=== PATIENT | female | born 1990 | race Caucasian/White ===

== ENCOUNTER 2019-02-12 17:24 | Observation (INO) | payer MEDICAID, SELFPAY ==
[2019-02-12 17:26] VITALS: BP 110/84; PULSE 92; RESP 16; TEMP 37; O2SAT 99; BMI 21.9
--- NOTE | 2019-02-12 18:51 | ED.DCSUM_ITS ---
- ER Visit Summary Date of Service: 02/12/19 Chief Complaint: [Accidental drug overdose] History of Present Illness: The patient is a 28 F [presents to the emergency department after an accidental drug overdose of heroin. Patient apparently was found unresponsive and blue and 911 was called. Patient received Narcan and initially intranasally and they did not have much of a response with that therefore they started an IV and gave her Narcan IV and patient then woke up. Patient has had multiple other overdoses. Patient last went through detox inpatient about a month ago. Patient's been using heroin for over 13 years. Patient has no physical complaints currently. She is currently being treated f or a staph infection on her foot and is on Bactrim and Keflex. Patient denies feeling suicidal or homicidal.] Physical Examination: [HEENT-PERRLA, EOMI. Cranial nerves II through XII grossly intact. TMs clear. Mucous membranes moist. No adenopathy. Cardiovascular-regular rate and rhythm without murmur or ectopy Lungs-clear to auscultation, chest wall stable without crepitus or subcu emphysema Abdomen-normoactive bowel sounds, soft, nontender, no rebound or rigidity, no peritoneal signs. Extremities-intact ?4, normal range of motion, normal pulses. Patient has mu ltiple track waller to her feet and lower extremities. Patient has track waller to upper extremities. No evidence of cellulitis or abscesses noted. Patient does have a healing abscess on her left heel.] Test Results: [None indicated] Emergency Department Course and Treatment: [Was observed for 2 hours in the department and she had no further complications. Patient is requesting detox.] Treatment Plan: Admit Disposition: [Admit Impression: [Accidental heroin overdose Requesting detox from heroin] This note was generated with [employer]com[employer] software. It may contain incorrect words, spelling, and punctuation that were not noted in review of the chart prior to signing ED Disposition - Plan for ED Patient: Referrals: Care Physician,No Primary [Primary Care Provider] -
--- NOTE | 2019-02-12 19:00 | HP.PCM_ITS ---
Problem List (1) Opiate withdrawal Status: Acute (2) Accidental overdose of heroin Status: Acute Qualifiers: Encounter type: initial encounter Qualified Code(s): T40.1X1A - Poisoning by heroin, accidental (unintentional), initial encounter (3) Tobacco use Status: Chronic (4) Hepatitis C Status: Chronic Qualifiers: Viral hepatitis chronicity: unspecified Hepatic coma status: without hepatic coma Qualified Code(s): B19.20 - Unspecified viral hepatitis C without hepatic coma History of Present Illness Date of Admission: 02/12/19 Chief Complaint: Acute opiate overdose, given narcan and now requesting withdrawal treatment The patient is a 28 y/o F w/ PMHx: Tobacco Use, Polysubstance abuse (Heroin IV and snorted, Cannabis), Hepatitis C who presents to the [facility] ED on 02/12/19 with recent heroin IV administration with accidental OD with EMS call, noted to have been found unresponsive and blue with administration narcan as well as per ED physician w/ noted opiate withdrawal following these administrations with now complaints of abdominal cramping, generalized body aches and pains, rhinorrhea, piloerection, fatigue, restless leg, sweating, yawning. Patient interested in attaining clean status although police were in ED and noted she had warrants for her if she did not get admitted thus possibly her choice to avoid incarcerations. She notes having overdosed several times. She has tried rehab several times. In the ED work-up including CBC, CMP, UDS, testing and EtOH level pending upon requested evaluation of patient. Past Medical History Past Medical History (Chronic Problems): Chronic Problems Tobacco use (Chronic) Hepatitis C (Chronic) Allergies No Known Allergies Allergy (Verified 02/12/19 17:33) Home Medications: Ambulatory Orders Medication Instructions Recorded NK 02/12/19 Surgical History: tonsillectomy Psychiatric History: No pertinent psych hx DISPUTE RESOLUTION ANALYST History: No pertinent DISPUTE RESOLUTION ANALYST history Lives: - - Lives with several roommates, some of whom are polysubstance abusers as well. Smoking Status: Current every day smoker - 1 to 1.5 pack/day cigarette tobacco usage. Tobacco Use: Cigarettes Alcohol: Rare Drugs: Heroin, Marijuana - *Family History Maternal History Items: - - Patient denies any market paternal or maternal family history including heart disease, diabetes, cancer, substance abuse. Paternal History Items: - - Patient denies any market paternal or maternal family history including heart disease, diabetes, cancer, substance abuse. Review of Systems Constitutional: Reports: Malaise, Weakness, Fatigue. Denies: Chills, Fever, Weight Change HEENT: Denies: Head Aches, Sinus Congestion, Sinus Drainage Cardiovascular: Denies: Chest Pain, Palpitations Respiratory: Denies: Cough, Shortness of breath at rest, Sputum production Gastrointestinal: Reports: Abdominal Pain, Nausea. Denies: Vomiting Genitourinary: Denies: Dysuria Musculoskeletal: Reports: Joint Pain, Muscle pain. Denies: Joint Tenderness Skin: Reports: Skin Changes. Denies: Rash, Wounds Neurological: Denies: Numbness, Tingling, Focal weakness Psychiatric: Denies: Anxiety, Depression, Homicidal Ideations, Suicidal Shakila ations Hematologic/ Lymphatic: Denies: Easy Bruising, Easy Bleeding VTE Information - Inpt Only VTE Present on Admission: No VTE Mechan Device Prophylaxis: None VTE Pharm Prophylaxis ordered?: No Reason prophylaxis not ordered:: Treatment Not Indicated Patient Problems: Active and Suspected Problems Opiate withdrawal (Acute) Accidental overdose of heroin (Acute) Subjective: Seated upright in the ED bed, fatigued appearance, notes very uncomfortable, appears in withdrawal. Objective: Physical Examination: General: awake, alert, oriented x 3 and cooperative, seated upright in the ED bed, uncomfortable appearing. Skin: normal color, turgor, no icterus, cyanosis, various track waller present. HEENT: AT/NC, EOMI, PERRLA, dry MM, rhinorrhea evident, no carotid bruits or JVD noted. Lungs: CTA bilaterally, moderate effort, moderate decrease BL bases, no rales, ronchi or wheezing. Heart: Mildly tachycardic with regular rhythm; no gallop, rub audible. Abdomen: soft, mild generalized discomfort with palpation, ND, mildly hyperactive BS, no HSM. Extremities: no cyanosis, clubbing, or edema. Neurological: patient awake, alert, oriented x 3; cognitive function intact; pupils equally reactive to light and accomodation; cranial nerves II-XII grossly normal, moving all 4 extremities, no focal deficits, strength moderately global decrease secondary to acute presentation. Psychiatric: affect appears fatigued, uncomfortable, no acute evidence of depressive or anxiety feelings. - Physical Exam Vital Signs Temp Pulse Resp BP Pulse Ox 98.6 F 92 16 110/84 H 99 02/12/19 17:26 02/12/19 17:26 02/12/19 17:26 02/12/19 17:26 02/12/19 17:26 Oxygen Delivery Method Room Air Weight: 123 lb 14.397 oz Body Mass Index (BMI) 21.9 Assessment/Plan All Active Problems Opiate withdrawal (Acute) Accidental overdose of heroin (Acute) The patient is a 28 y/o F w/ PMHx: Tobacco Use, Polysubstance abuse, Hepatitis C who presents to the [facility] ED on 02/12/19 with recent heroin IV administration with accidental OD with EMS call, noted to have been found unresponsive and blue with administration narcan as well as per ED physician w/ noted opiate withdrawal. (1) Acute Opiate Withdrawal: Will admit to [facility], obtain routine labs including CBC, CMP, urine for drug screen, urinalysis, serum lipase, routine EKG and will initiate and continue on [facility] service protocol with tapering course of Subutex, as needed Seroquel, Librium, Sinemet, Catapres, Bentyl, Vistaril, IV fluids, IV antiemetics, Tylenol as needed for pain. Once patient clinically improved and completion of taper nearing will plan [facility] assistance for transition to next level of rehabilitation care. (2) Polysubstance Abuse, IVDA Hx, History of Hepatitis C: Patient currently not candidate for hep C treatment currently as needs to be clean, sober x 6 months, documented attendance NA or AA meetings, counseling and ongoing negative drug screens. HIV, hepatitis panel to assess for co-infection pending. Encouraged PCP establishment and follow-up. (3) Tobacco Abuse: Encouraged cessation, inpatient consultation per RT, NR if desired. (4) DVT prophylaxis: Low risk, ambulation. Code Visit Inpatient E&M: 44990 Init Hosp L3
[2019-02-12 19:20] VITALS: BP 96/65; PULSE 82; RESP 20; O2SAT 97
[2019-02-12 19:31] LABS: Absolute Lymphocyte Count 1.22 X10^3/uL (0.83-4.51); Absolute Neutrophil Count 4.8 X10^3/uL (2.0-7.7); Basophil# 0.03 X10^3/uL; Basophil% 0.5 % (0-1); Eosinophil# 0.01 X10^3/uL; Eosinophils% 0.2 % (0-5); Hematocrit 38.2 % (37-47); Hemoglobin 12.1 g/dL (12.0-15.0); Lymphocyte # 1.22 X10^3/ul (4.0); Lymphocyte % 18.8 % (19-41); Mean Corp Hgb Conc 31.7 g/dL (32-36); Mean Corpuscular Hgb 26.9 pg (27.0-32.0); Mean Corpuscular Volume 84.9 fL (81-99); Mean Platelet Vol. 10.6 fl (6.2-12.0); Monocyte% 6.2 % (0-10); NRBC Flagged by Analyzer 0 % (0-5); Neutrophil # 4.81 X10^3/uL (2.7-7.7); Neutrophil % 73.8 % (47-70); POSITIVE MORPHOLOGY YES; Platelet Count 225 K/mm3 (150-450); RBC Distribution Width SD 45.4 fl (35.1-43.9); White Blood Count 6.5 K/mm3 (4.4-11.0)
[2019-02-12 19:41] LABS: ALB/GLOB Ratio 0.8 RATIO (0.9-2.4); AST(SGOT) 66 U/L (15-37); Alanine Aminotransfer ALT/SGPT 78 U/L (13-56); Albumin, Serum 2.9 g/dL (3.2-5.0); Alkaline Phosphatase 78 U/L (45-117); Anion Gap 4 (5-15); BUN 14 mg/dL (7-18); BUN/Creat Ratio 19.5 RATIO (10-20); Calcium,Total 8.2 mg/dL (8.5-10.1); Chloride 105 mmol/L (98-107); Creatinine, Serum 0.72 mg/dL (0.55-1.02); EST Glomerular Filtration Rate 103 mL/min (>60); Est Glom Filt Rate - Afr Amer 125 mL/min (>60); Estimated Creatinine Clearance 97.09 ml/min; Globulin 3.6 g/dL (2.2-4.2); Glucose 102 mg/dL (74-106); Potassium 3.9 mmol/L (3.5-5.1); Protein, Total 6.5 g/dL (6.4-8.2); Sodium Level 138 mmol/L (136-145)
[2019-02-12 19:50] VITALS: BMI 20.3; BMI 20.4
[2019-02-12 20:02] VITALS: BP 93/64; PULSE 88; RESP 19; TEMP 37.2; O2SAT 96
[2019-02-12 20:07] LABS: Differential Indicated SCAN CRITERIA MET
[2019-02-12 20:09] LABS: Platelet Estimate ADEQUATE (ADEQ)
[2019-02-12 20:10] LABS: Platelet Morphology LARGE; Red Cell Morphology NORM C+C NORMAL (NORM C&C)
[2019-02-12 20:37] LABS: Internal QC Validated? YES +Cl - CLEAR BKGD; Pregnancy, Serum, hCG Quali. NEGATIVE Negative
[2019-02-12 21:22] LABS: HIV - WCH Non-Reactive (Nonreactive)
[2019-02-12 21:37] LABS: Amphetamine Urine VISTA NEGATIVE (<1000 ng/mL); Barbiturate Urine VISTA NEGATIVE (< 200 ng/mL); Benzodiazepine Urine VISTA NEGATIVE (< 200 ng/mL); Cocaine Urine VISTA NEGATIVE (< 300 ng/mL); Ecstacy Urine VISTA NEGATIVE (< 500 ng/mL); Methadone Urine VISTA NEGATIVE (< 300 ng/mL); PCP Urine VISTA NEGATIVE (< 25 ng/mL); THC Urine VISTA POSITIVE (< 50 ng/mL); Vista UDS pH Range 7
[2019-02-12 21:50] VITALS: BP 103/55; PULSE 74; RESP 18; TEMP 36.9; O2SAT 97
[2019-02-12] MEDS: traZODone 50 MG Tablet PO (21:50)
[2019-02-12] MEDS: Dicyclomine 10 MG Capsule 20 MG PO (21:50)
[2019-02-12] MEDS: Buprenorphine HCl 2 MG TAB.SUBL SL (21:51)
[2019-02-13 02:00] VITALS: BP 95/66; PULSE 64; RESP 16; TEMP 36.6; O2SAT 98
[2019-02-13 04:47] VITALS: BP 96/61; PULSE 79; RESP 16; TEMP 36.6; O2SAT 98
[2019-02-13] MEDS: Buprenorphine HCl 2 MG TAB.SUBL SL ×3 (04:50→19:55)
[2019-02-13] MEDS: Ibuprofen 600 MG Tablet PO (04:50)
--- NOTE | 2019-02-13 05:20 | NURSING ---
pt tells this RN she would prefer to go directly to an inpatient treatment center at discharge.
[2019-02-13 07:02] VITALS: O2SAT 96
--- NOTE | 2019-02-13 09:41 | PN_ITS ---
Patient Problems: Active and Suspected Problems Opiate withdrawal (Acute) Accidental overdose of heroin (Acute) Subjective: Patient seen and examined. She has no complaints this morning. Review of systems otherwise negative. She has been managed for acute opioid withdrawal. Patient states she just completed rehab at [facility] where she was for 3 months. She was discharged last week and subsequently relapsed. She has been told she cannot go back there for the next 6 months. She was put on inpatient facility after acute withdrawal. Vitals/I&O's: Vital Signs Temp Pulse Resp BP Pulse Ox 98 F 79 16 96/61 98 02/13/19 04:47 02/13/19 04:47 02/13/19 04:47 02/13/19 04:47 02/13/19 04:47 Oxygen Delivery Method Room Air Weight: 115 lb Body Mass Index (BMI) 20.3 Intake and Output for Last 24 Hours 02/11/19 02/12/19 02/13/19 23:59 23:59 23:59 Intake Total 446 / 446 540 / 540 Balance 446 / 446 540 / 540 General: Alert, Oriented x3, Cooperative, No apparent distress HEENT: Atraumatic, PERRLA, EOMI, Normocephalic Oral: Moist Mucosa Neck: Supple, No JVD, Negative Carotid Bruits Lungs: Clear to auscultation, Normal air movement, No rhonchi, No wheeze, No rales Cardiovascular: Regular rate, Regular Rhythm, Normal S1, Normal S2, No murmurs Abdomen: Bowel Sounds Present, Soft, Non Tender, Non-Distended, No Hepato- splenomegaly Extremities: No clubbing, No cyanosis, No edema, Capillary Refill Less than 3 Seconds Skin: - - visible track waller on UEs Musculoskeletal: No Tenderness to Palpation of Joints or Extremities Lymphatic: No Cervical, Supraclavicular, or Inguinal Adenopathy Neurological: Cranial nerves II-XII grossly intact, Neuro grossly intact, Motor Exam 5/5 strength throughout Psych/Mental Status: Normal Affect, Appropriate, Alert and oriented to time, place, person, mood and affect Laboratory Results 02/12/19 19:18: WBC 6.5, RBC 4.50, Hgb 12.1, Hct 38.2, MCV 84.9, MCH 26.9 L, MCHC 31.7 L, RDW Std Deviation 45.4 H, RDW Coeff of Salvatore 15.0 H, Plt Count 225, MPV 10.6, Immature Gran % (Auto) 0.500, Neut % (Auto) 73.8 H, Lymph % (Auto) 18.8 L, [place] % (Auto) 6.2, Eos % (Auto) 0.2, Baso % (Auto) 0.5, Absolute Neuts (auto) 4.8, Absolute Lymphs (auto) 1.22, Nucleated RBC % 0, Diff Path Review May foll, Platelet Estimate ADEQUATE, Plt Morphology Comment LARGE, RBC Morphology NORM C+C 02/12/19 19:18: Sodium 138, Potassium 3.9, Chloride 105, Carbon Dioxide 29.0, Anion Gap 4 L, BUN 14, Creatinine 0.72, Estim Creat Clear Calc 97.09, Est GFR (MDRD) Af Amer 125, Est GFR (MDRD) Non-Af 103, BUN/Creatinine Ratio 19.5, Gluc ose 102, Calcium 8.2 L, Total Bilirubin 0.30, AST 66 H, ALT 78 H, Alkaline Phosphatase 78, Total Protein 6.5, Albumin 2.9 L, Globulin 3.6, Albumin/Globulin Ratio 0.8 L 02/12/19 19:18: Ethyl Alcohol 9.0 02/12/19 19:18: Serum , Qual NEGATIVE 02/12/19 19:18: Hepatitis A IgM Ab Pending, Hepatitis A Ab Total Pending, Hep Bs Antigen Pending, Hep B Core Total Ab Pending, Hep B Core IgM Ab Pending 02/12/19 19:18: HIV 1&2 Antibody Non-Reactive 02/12/19 21:10: Urine Opiates Screen POSITIVE H, Urine Methadone Screen NEGATIVE, Ur Barbiturates Screen NEGATIVE, Ur Phencyclidine Scrn NEGATIVE, Ur Amphetamines Screen NEGATIVE, U Methamphetamin-MDMA NEGATIVE, U Benzodiazepines Scrn NEGATIVE, Urine Cocaine Screen NEGATIVE, U Cannabinoids Screen POSITIVE H, Ur Drug Screen Comment Current Medications Acetaminophen (Tylenol) 500 mg PO Q4H PRN PRN PRN Reason: Temp > 100.4 F Al Hydroxide/Mg Hydroxide (Mylanta Ii) 30 ml PO Q6H PRN PRN PRN Reason: dyspesia Bisacodyl (Dulcolax) 10 mg RECTAL DAILY PRN PRN Reason: Constipation Buprenorphine HCl (Buprenorphine Hcl) 4 mg SL Q8H JARRED; Taper Stop: 02/15/19 23:51 Last Admin: 02/13/19 04:50 Dose: 4 mg Documented by: Chlordiazepoxide (Librium) 25 mg PO Q6H PRN PRN PRN Reason: Moderate-Severe Anxiety Clonidine (Catapres) 0.1 mg PO Q2H PRN PRN PRN Reason: Hot/Cold Sweats or Anxiety Dextrose (D50w Syringe) 0 gm IV X1 PRN; Protocol PRN Reason: Hypoglycemia Dicyclomine HCl (Bentyl) 20 mg PO Q6H PRN PRN PRN Reason: Abdomnial Discomfort Last Admin: 02/12/19 21:50 Dose: 20 mg Documented by: Glucagon () 1 mg IM .X1 PRN PRN Reason: Hypoglycemia Hydroxyzine HCl (Vistaril Vial) 50 mg IM Q6H PRN PRN PRN Reason: Breakthrough Anxiety Hydroxyzine Pamoate (Vistaril Pamoate Capsule) 50 mg PO Q6H PRN PRN PRN Reason: Mild Anxiety Ibuprofen (Motrin) 600 mg PO Q8H PRN PRN PRN Reason: Pain Score 1-5/10 Last Admin: 02/13/19 04:50 Dose: 600 mg Documented by: Loperamide HCl (Imodium) 2 - 4 mg PO UD PRN PRN Reason: LOOSE STOOLS Methocarbamol (Methocarbamol) 750 mg PO Q6H PRN PRN PRN Reason: Muscle Aches Nicotine (Nicoderm Cq (Pbkc)) 21 mg TRANSDERM. DAILY [facility] Last Admin: 02/12/19 21:53 Dose: 21 mg Documented by: Ondansetron HCl (Zofran Odt) 4 mg PO Q6H PRN PRN PRN Reason: NAUSEA Pramipexole Dihydrochloride (Mirapex) 0.25 mg PO Q12H PRN PRN PRN Reason: Restless Legs Senna (Senokot) 1 tablet PO QHS PRN PRN Reason: Constipation Sodium Chloride () 5 - 15 ml IV UD PRN PRN Reason: SALINE FLUSH Trazodone HCl (Desyrel) 50 mg PO QHS [facility] Last Admin: 02/12/19 21:50 Dose: 50 mg Documented by: Medical Necessity - Tobacco Use Smoking Status: Current every day smoker Tobacco Use: Cigarettes, Chew, Pipe, Vapor Assessment/Plan All Active Problems Opiate withdrawal (Acute) Accidental overdose of heroin (Acute) 1. Acute opioid withdrawal * urine tox screen was positive for opiates and cannabinoids * patient accidentally overdosed and was resuscitated with narcan * currently on opioid withdrawal protocol with buprenorphine * monitor CINA score * wants to go to an inpatient rehab unit after discharge- case management on board to help facilitate this. * HIV screen nonreactive. * 2. History of hepatitis C: treatment naive. counseled she needs to be clean for at least 6 months to be considered for treatment. 3. Nicotine dependence: counseled to quit. Nicotine patch. DVT prophylaxis: low risk. encouraged to ambulate Code Visit Inpatient E&M: 17707 Subs Hosp L2
[2019-02-13 10:05] LABS: Pathologist Review Reviewed
--- NOTE | 2019-02-13 11:30 | CASEMGMT ---
Social Work Note SW attempted to meet with pt to complete assessment. Pt asked this worker to come back later in the day. SW will attempt to meet with pt later this afternoon. Esperanza Beltran HEAVY EQUIPMENT OPERATOR APPRENTICE, ECONOMICS LECTURER
[2019-02-13 11:44] VITALS: BP 80/50; PULSE 73; RESP 18; TEMP 36.7; O2SAT 98
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
--- NOTE | 2019-02-13 13:00 | CASEMGMT ---
Social Work Note SW back in to speak with pt regarding treatment options. Pt states she would like to try [facility], [facility] or [facility] in [place] but again states she would like inpatient treatment. SW explained that this worker will review choices and if they are inpatient this worker will send referral and ask the facilities to call pt to discuss options with pt. SW informed pt that this worker reviewed [facility] in [place], [place] and the residential facility is only for men. SW provided pt with information on [facility]. SW informed pt that this worker can call [facility] and determine how to get pt involved with [facility]. Pt states understanding. SW reviewed facilities [facility] and [facility] in [place] all only offer outpatient services. SW couldn't find any information on [facility]. SW placed a call to [facility] and they do have a couple beds available at this time in their residential program. Pt will need to call [facility] to arrange an appointment time to be assessed for residential or pt can come to walk in hours at [facility] Saturday-Saturday 8:00-3:00pm. ROGERS met with pt and provided pt with information on [facility] and encouraged pt to call to see if she can be assessed for residential while she is at [facility]. ROGERS provided pt with [facility] number and walk in hours. Pt states she will call [facility]. ROGERS also encouraged pt to call her Sheet Roller Operator as he may be able to assist pt with transitioning to inpatient rehab. Pt states she will also call her recovery manager. Plan: Pt to call [facility] to arrange appointment for assessment to determine if pt is appropriate for residential treatment at [facility]. Pt is to also call her Sheet Roller Operator to discuss inpatient options. Esperanza Beltran SHEET ROLLER OPERATOR, CLIENT PROFESSIONAL
[2019-02-13 13:25] VITALS: BP 100/57; PULSE 68; RESP 18; TEMP 36.3; O2SAT 97
--- NOTE | 2019-02-13 13:55 | NURSING ---
informed pt that MD would restart one of her home atb. PT mad stated that she dont see why she wont start both, states if her infections doesnt clear up she will come back into ER and have that doctor job. Offered to get info to patient for patient advocate, pt refused
[2019-02-13] MEDS: Ondansetron ODT 4 MG Tablet PO (16:28)
[2019-02-13] MEDS: Dicyclomine 10 MG Capsule 20 MG PO (16:33)
[2019-02-13] MEDS: hydrOXYzine PAM 25 MG Capsule 50 MG PO (16:33)
[2019-02-13] MEDS: Methocarbamol 750 MG Tablet PO (16:33)
[2019-02-13] MEDS: chlordiazePOXIDE 25 MG Capsule PO (16:33)
[2019-02-13] MEDS: Smz/Tmp Ds Tablet 1 TABLET PO (19:53)
[2019-02-13] MEDS: traZODone 50 MG Tablet PO (19:54)
[2019-02-13 20:03] VITALS: BP 100/54; PULSE 60; RESP 16; TEMP 36.5; O2SAT 98
[2019-02-14] VITALS (10 sets, daily range): BP systolic 75–92; BP diastolic 38–58; PULSE 46–68; RESP 10–18; TEMP 36.3–37; O2SAT 96–100
[2019-02-14] MEDS: Buprenorphine HCl 2 MG TAB.SUBL SL ×3 (04:02→22:53)
[2019-02-14] MEDS: Methocarbamol 750 MG Tablet PO ×2 (04:02→22:53)
[2019-02-14 05:06] LABS: HEPATITIS B SURFACE AG Negative (Negative); Hepatitis A AB, Total Positive (Negative); Hepatitis B Core AB IgM Negative (Negative); Hepatitis B Core Ab Total Negative (Negative); Hepatitis C Ab >11.0 s/co ratio (0.0-0.9)
[2019-02-14] MEDS: Smz/Tmp Ds Tablet 1 TABLET PO ×2 (08:49→16:32)
--- NOTE | 2019-02-14 10:05 | PN_ITS ---
Patient Problems: Active and Suspected Problems Opiate withdrawal (Acute) Accidental overdose of heroin (Acute) Subjective: Patient seen and examined. She had no active events overnight and no complaints. Review of systems otherwise negative. Labs and vitals reviewed. Blood pressure noted to have trended down further to 75/40 this morning. Patient was refused IV fluid administration yesterday. Patient is due to call [facility] facility to set up an appointment for her to be evaluated for inpatient admission. Vitals/I&O's: Vital Signs Temp Pulse Resp BP Pulse Ox 97.7 F L 46 L 10 L 75/44 L 96 02/14/19 08:26 02/14/19 09:39 02/14/19 08:26 02/14/19 09:39 02/14/19 08:26 Oxygen Delivery Method Room Air Weight: 115 lb Body Mass Index (BMI) 20.3 Orthostatic Vital Signs Start: 02/14/19 09:38 Freq: q24h Status: Active Protocol: Activity Type Activity Date Activity User E-Sign Co-Sign Detail Recorded Client Recorded Date Recorded By Document 02/14/19 09:39 FS [id number] 02/14/19 09:50 FS 02/14/19 09:39 Orthostatic Vitals Standing -Blood Pressure (90/60-120/80) 90/57 L -Extremity Use Right Arm -Pulse Rate (60-100) 67 Sitting -Blood Pressure (90/60-120/80) 87/56 L -Extremity Use Right Arm Lying -Blood Pressure (90/60-120/80) 75/44 L -Extremity Use Right Arm -Pulse Rate (60-100) 46 L Intake and Output for Last 24 Hours 02/12/19 02/13/19 02/14/19 23:59 23:59 23:59 Intake Total 446 / 446 1020 / 1220 350 / 350 Balance 446 / 446 1020 / 1220 350 / 350 General: Alert, Oriented x3, Cooperative, No apparent distress HEENT: Atraumatic, PERRLA, EOMI, Normocephalic Oral: Moist Mucosa Neck: Supple, No JVD, Negative Carotid Bruits Lungs: Clear to auscultation, Normal air movement, No rhonchi, No wheeze, No rales Cardiovascular: Regular rate, Regular Rhythm, Normal S1, Normal S2, No murmurs Abdomen: Bowel Sounds Present, Soft, Non Tender, Non-Distended, No Hepato-splen omegaly Extremities: No clubbing, No cyanosis, No edema, Capillary Refill Less than 3 Seconds Skin: - - visible track waller on UEs Musculoskeletal: No Tenderness to Palpation of Joints or Extremities Lymphatic: No Cervical, Supraclavicular, or Inguinal Adenopathy Neurological: Cranial nerves II-XII grossly intact, Neuro grossly intact, Motor Exam 5/5 strength throughout Psych/Mental Status: Normal Affect, Appropriate, Alert and oriented to time, place, person, mood and affect Laboratory Results 02/12/19 19:18: Diff Path Review Reviewed Current Medications Acetaminophen (Tylenol) 500 mg PO Q4H PRN PRN PRN Reason: Temp > 100.4 F Al Hydroxide/Mg Hydroxide (Mylanta Ii) 30 ml PO Q6H PRN PRN PRN Reason: dyspesia Bisacodyl (Dulcolax) 10 mg RECTAL DAILY PRN PRN Reason: Constipation Buprenorphine HCl (Buprenorphine Hcl) 2 mg SL Q8H JARRED; Taper Stop: 02/15/19 23:51 Last Admin: 02/14/19 04:02 Dose: 2 mg Documented by: Chlordiazepoxide (Librium) 25 mg PO Q6H PRN PRN PRN Reason: Moderate-Severe Anxiety Last Admin: 02/13/19 16:33 Dose: 25 mg Documented by: Clonidine (Catapres) 0.1 mg PO Q2H PRN PRN PRN Reason: Hot/Cold Sweats or Anxiety Dextrose (D50w Syringe) 0 gm IV X1 PRN; Protocol PRN Reason: Hypoglycemia Dicyclomine HCl (Bentyl) 20 mg PO Q6H PRN PRN PRN Reason: Abdomnial Discomfort Last Admin: 02/13/19 16:33 Dose: 20 mg Documented by: Glucagon () 1 mg IM .X1 PRN PRN Reason: Hypoglycemia Hydroxyzine HCl (Vistaril Vial) 50 mg IM Q6H PRN PRN PRN Reason: Breakthrough Anxiety Hydroxyzine Pamoate (Vistaril Pamoate Capsule) 50 mg PO Q6H PRN PRN PRN Reason: Mild Anxiety Last Admin: 02/13/19 16:33 Dose: 50 mg Documented by: Sodium Chloride () 1,000 mls @ 500 mls/hr IV .Q2H JARRED Stop: 10/12/19 11:04 Ibuprofen (Motrin) 600 mg PO Q8H PRN PRN PRN Reason: Pain Score 1-5/10 Last Admin: 02/13/19 04:50 Dose: 600 mg Documented by: Loperamide HCl (Imodium) 2 - 4 mg PO UD PRN PRN Reason: LOOSE STOOLS Methocarbamol (Methocarbamol) 750 mg PO Q6H PRN PRN PRN Reason: Muscle Aches Last Admin: 02/14/19 04:02 Dose: 750 mg Documented by: Nicotine (Nicoderm Cq (Pbkc)) 21 mg TRANSDERM. DAILY [facility] Last Admin: 02/13/19 11:21 Dose: 21 mg Documented by: Nutritional Formula (Lactose Free) (Ensure Enlive) 120 ml PO 4X/DAY [facility] Last Admin: 02/14/19 08:49 Dose: 120 ml Documented by: Ondansetron HCl (Zofran Odt) 4 mg PO Q6H PRN PRN PRN Reason: NAUSEA Last Admin: 02/13/19 16:28 Dose: 4 mg Documented by: Pramipexole Dihydrochloride (Mirapex) 0.25 mg PO Q12H PRN PRN PRN Reason: Restless Legs Senna (Senokot) 1 tablet PO QHS PRN PRN Reason: Constipation Sodium Chloride () 5 - 15 ml IV UD PRN PRN Reason: SALINE FLUSH Trazodone HCl (Desyrel) 50 mg PO QHS [facility] Last Admin: 02/13/19 19:54 Dose: 50 mg Documented by: Trimethoprim/Sulfamethoxazole (Bactrim Ds) 1 tablet PO BIDCM [facility] Last Admin: 02/14/19 08:49 Dose: 1 tablet Documented by: Medical Necessity - Tobacco Use Smoking Status: Current every day smoker Tobacco Use: Cigarettes, Chew, Pipe, Vapor Assessment/Plan All Active Problems Opiate withdrawal (Acute) Accidental overdose of heroin (Acute) 1. Acute opioid withdrawal * urine tox screen was positive for opiates and cannabinoids * currently on opioid withdrawal protocol with buprenorphine * monitor CINA score * to call [facility] to set up an appointment for evaluation for inpatient rehab admission. * HIV screen nonreactive. * 2. Asymptomatic hypotension * BP down to 75/40 today. BP has been running in 90s and 100s systolic; this is likely her baseline * orthostatics checked were negative * hydrate with IVF NS 1 L bolus and 150cc/hr x 1 bag * encourage adequate oral hydration * 3. History of hepatitis C: treatment naive. counseled she needs to be clean for at least 6 months to be considered for treatment. 4. Nicotine dependence: counseled to quit. Nicotine patch. DVT prophylaxis: low risk. encouraged to ambulate Code Visit Inpatient E&M: [id number] Subs Hosp L2
[2019-02-14] MEDS: hydrOXYzine PAM 25 MG Capsule 50 MG PO (17:22)
[2019-02-14] MEDS: Ibuprofen 600 MG Tablet PO (22:53)
[2019-02-14] MEDS: Dicyclomine 10 MG Capsule 20 MG PO (22:53)
[2019-02-14] MEDS: traZODone 50 MG Tablet PO (22:54)
[2019-02-15] VITALS (8 sets, daily range): BP systolic 80–121; BP diastolic 41–61; PULSE 58–96; RESP 12–16; TEMP 36.5–36.8; O2SAT 95–100
--- NOTE | 2019-02-15 01:16 | PCM.HOSP.N ---
Hospitalist Note Nurse called me low blood pressure. Map is more than 65. Blood pressure 92/57. Patient has been refusing IV fluid. IV fluid is ordered.
[2019-02-15] MEDS: Smz/Tmp Ds Tablet 1 TABLET PO ×2 (08:09→17:21)
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
[2019-02-15] MEDS: Buprenorphine HCl 2 MG TAB.SUBL SL (11:39)
[2019-02-15] MEDS: Acetaminophen 500 MG Tablet PO (15:02)
[2019-02-16 05:37] VITALS: BP 118/75; PULSE 66; RESP 16; TEMP 36.3; O2SAT 99
--- NOTE | 2019-02-16 09:18 | DCINST_ITS ---
- Discharge Diagnoses Current Active Problems: Current Active and Chronic Problems Opiate withdrawal (Acute) Accidental overdose of heroin (Acute) Tobacco use (Chronic) Hepatitis C (Chronic) You will use the following diet at home:: No restrictions Your food should be the consistency of: Regular Allergies/Adverse Reactions: Allergies No Known Allergies Allergy (Verified 02/12/19 17:33) Medications to take at Discharge Smz/Tmp Ds [Bactrim Ds] 1 tab PO BID 02/12/19 Acetaminophen [Tylenol] 500 mg PO Q4H PRN PRN tablet 02/16/19 Ibuprofen [Motrin] 600 mg PO Q8H PRN PRN tablet 02/16/19 Primary Care Physician: Care Physician,No Primary [Primary Care Provider] - Test Results: Test results from this visit will be discussed in further detail at your follow- up appointment, if applicable. Please Follow Up With: Addiction program When: as soon as possible. Proposed Discharge Date: 02/16/19
[2019-02-16 09:19] VITALS: BP 91/41; PULSE 70; RESP 16; TEMP 36.7; O2SAT 96
--- NOTE | 2019-02-16 09:19 | PCM.DC.SUM ---
Discharge Date and Diagnosis - Problem List Patient Problems: Active and Suspected Problems Opiate withdrawal (Acute) Accidental overdose of heroin (Acute) Date of Admission: 02/12/19 Date of Discharge: 02/16/19 - Primary Discharge Diagnosis Active and Suspected Problems Opiate withdrawal (Acute) Accidental overdose of heroin (Acute) - Secondary Discharge Diagnosis Chronic Problems Tobacco use (Chronic) Hepatitis C (Chronic) Hospital Course and Treatment Operations: None Procedures: None Summary of Care Provided: The patient is a 28 year old F presents to the emergency room on the who had an accidental overdose and EMS was contacted. Patient was found unresponsive and cyanotic. Patient received Narcan in the field. Patient was brought to the hospital. Patient was complaining of some opiate withdrawal type symptoms, including abdominal cramps, myalgias rhinorrhea. Patient stated that she was interested in maintaining sobriety and patient was admitted and started on a buprenorphine taper. Patient did well and did complete the buprenorphine. Patient was going to call [facility] but unable to contact them on the . Patient has not been yet able to contact them but she does have her rehab ice hockey coach coming in here to take her to a program she is able to get 1 or take her home. Patient states that she does live by herself as her 7-year-old roommate is currently in a care home with may be hospice care for cancer. Patient is interested in maintaining sobriety and patient encouraged to get established with an addiction programs to help her navigate maintaining sobriety. [] Patient Problems: Active and Suspected Problems Opiate withdrawal (Acute) Accidental overdose of heroin (Acute) - Physical Exam General: Alert, No apparent distress, - - Appears older than stated age HEENT: Atraumatic, Normocephalic Psych/Mental Status: Appropriate, Anxious Vital Signs Temp Pulse Resp BP Pulse Ox 36.3 C L 66 16 118/75 99 02/16/19 05:37 02/16/19 05:37 02/16/19 05:37 02/16/19 05:37 02/16/19 05:37 Oxygen Delivery Method Room Air Weight: 52.163 kg Body Mass Index (BMI) 20.3 Orthostatic Vital Signs Start: 02/14/19 09:38 Freq: q24h Status: Active Protocol: Activity Type Activity Date Activity User E-Sign Co-Sign Detail Recorded Client Recorded Date Recorded By Document 10/13/19 09:49 PN [id number] 02/15/19 10:11 PN 02/15/19 09:49 Orthostatic Vitals Standing -Blood Pressure (90/60-120/80) 83/41 L -Extremity Use Right Arm -Pulse Rate (60-100) 74 Sitting -Blood Pressure (90/60-120/80) 102/53 L -Extremity Use Right Arm -Pulse Rate (60-100) 58 L Lying -Blood Pressure (90/60-120/80) 99/51 L -Extremity Use Right Arm -Pulse Rate (60-100) 63 Intake and Output for Last 24 Hours 02/14/19 02/15/19 02/16/19 23:59 23:59 23:59 Intake Total 350 / 800 570 / 570 500 / 500 Balance 350 / 800 570 / 570 500 / 500 Discharge Diet: No Restrictions Discharge Activity: Return to Normal Activity Home Medications: Medications to take at Discharge Smz/Tmp Ds [Bactrim Ds] 1 tab PO BID 02/12/19 Acetaminophen [Tylenol] 500 mg PO Q4H PRN PRN tablet 02/16/19 Ibuprofen [Motrin] 600 mg PO Q8H PRN PRN tablet 02/16/19 Primary Care Physician: Care Physician,No Primary [Primary Care Provider] - Please Follow Up With: Addiction program When: as soon as possible. Disposition: Home Minutes spent on discharge:: 25 Patient Condition:: Good Medical Necessity - Tobacco Use Smoking Status: Current every day smoker Tobacco Use: Cigarettes, Chew, Pipe, Vapor Meaningful Use Info Meaningful Use Diagnoses (Choose all that apply): None applicable Code Visit Inpatient E&M: [id number] Disch Hosp
[2019-02-16] MEDS: Pramipexole Di-HCl 0.25 MG Tablet PO (09:54)
[2019-02-16] MEDS: chlordiazePOXIDE 25 MG Capsule PO (09:54)
[2019-02-16] MEDS: Methocarbamol 750 MG Tablet PO (09:54)
[2019-02-16] MEDS: Smz/Tmp Ds Tablet 1 TABLET PO (09:55)
--- NOTE | 2019-02-16 11:09 | CASEMGMT ---
Social Work Note SW met with pt to confirm plans. Pt states she was not able to get a hold of [facility] over the weekend. Pt states that her head boys tennis coach is not able to pick her up today but that a different head boys tennis coach will be picking her up today. Pt states that she plans on going to [facility] today for walk in assessment and will have her head boys tennis coach take her or her friend Barbara. Pt denied additional needs or concerns at this time. Plan: Pt to discharge today and go to [facility] for walk in assessment to get linked up with [facility] Esperanza Beltran [employer], [employer]
[2019-02-16 12:38] LABS: Hep B Surface Antibodies Non Reactive (.)
[2019-02-16 12:39] LABS: Hepatitis A IgM Antibody Positive (Negative)
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
== END 2019-02-16 12:48 | disposition home or self-care (01) | DRG 773 ==
LOC: ED 18:13 → MS3 02-13 05:29
PROVIDERS: Admitting Provider Family Medicine; Emergency Provider Emergency Medicine
DX: F11.23 Opioid dependence with withdrawal (principal); F17.210 Nicotine dependence, cigarettes, uncomplicated; B18.2 Chronic viral hepatitis C; T40.1X1A Poisoning by heroin, accidental (unintentional), initial encounter; I95.9 Hypotension, unspecified; L03.116 Cellulitis of left lower limb
CPT/HCPCS: 80053; 80307; 80320; 84703; 85025; 86703; 86704; 86705; 86706; 86708; 86709; 86803; 87340; 97802; 99218; 99285; 99406; A4216; G0378; G0480; J2405